=== PATIENT | female | born 1935 | race Caucasian/White ===

== ENCOUNTER 2018-06-26 09:47 | Inpatient (IN) ==
[2018-06-26 09:54] VITALS: BMI 24.7
--- NOTE | 2018-06-26 10:49 | DR.GENAD ---
HPI Time Seen Time Seen by Provider: 06/26/18 10:16 PCP Primary Care Physician: MANDI BERRIOS HPI Comment HPI Comment: PATIENT HAVE HAD CONSTIPATION FOR PAST 10 DAYS AND IS GETTING WORSE. NO FEVER. TODAY, AMS WITH LOW BP. SHE IS BEING JERKING A LOT RECENTLY. SEEING NEUROLOGIST FOR THIS. Complaint/Symptoms Chief Complaint Doctors Comments: AMS AND LOW BLOOD PRESSURE NOTED WHILE PATIENT WAS SITTING UP. JERKING SPELLS FOR A WHILE AND SHE IS CONSTIPATED. Chief Complaint:: PATIENT WOKE UP THIS MORNING BLOOD PRESSURE WAS 80/55 AND 119/ 95. FAMILY STATED THAT SHE HAS BEEN HAVING JERKING SPELLS. SHE HAS BEEN GOING 8- 10 DAYS WITHOUT A BOWEL MOVEMENT. SHE HAS GONE THIS WEEKEND AFTER A BOWEL PREP.J Nurses notes reviewed Nurses Notes Review: Yes Source History Provided: Family Member Mode of Arrival Mode of Arrival: Wheelchair Timing Onset of Chief Complaint: 06/26/18 Came on: Suddenly Duration Duration: Constant Duration: Hours Severity Severity: Moderate Modifying Factors Worsens:: NONE NOTED. Improves:: NONE NOTED. Associated Signs and Symptoms Associated Signs and Symptoms: WEAK PMH PMH Past Medical History: Yes Past Medical History: Alzheimers, Dementia, Diabetes and Hypertension Past Surgical History: Yes Surgical History: Appendectomy, Carotid Endarterectomy, Hysterectomy and Ortho Surgery Family History History of Family Medical Conditions: Yes Family Medical History: Diabetes Mellitus, [place], Heart Failure and Hypertension Social History Does patient currently use any type of tobacco product: No Have you used tobacco products in the last 12 months: No Type of Tobacco Use: None Does any household member use tobacco: No Alcohol Use: None and Rarely Do you use any recreational Drugs:: No Lives With: Family Lives Where: Home infectious screening In the last 2 months have you had wt loss of >10#?: NO Have you had fever, night sweats or hemotysis?: No Have you traveled outside the country in the last 6 months?: No Isolation: Standard ROS Review of Systems Constitutional: Weakness and Fatigue; negative Chills and Fever Eyes: negative Eye Pain and Discharge ENTM: No Symptoms Reported Respiratoy: Short of Breath (ON EXERSION.) Cardiovascular: No Symptoms Reported Gastrointestinal/Abdominal: Abdominal Pain and Constipation Genitourinary: No Symptoms Reported Neurological: Tremors (JERKING SPELLS.) and Weakness Musculoskeletal: Joint Pain Integumentary: Dryness Hematologic/Lymphatic: Easy Bleeding and Easy Bruising Endocrine: negative [place] Psychiatric: No Symptoms Reported Unable to Obtain Due To: Altered mental status PE Vital Signs Vitals: Temperature 98.2 F Pulse Rate [Apical] 66 Pulse Rate 66 Respiratory Rate 18 Blood Pressure [Right Arm] 139/99 Blood Pressure [Left Arm] 137/80 Blood Pressure [Right Radial 182/84 Artery] Blood Pressure 128/58 O2 Sat by Pulse Oximetry 94 General Limitations: Altered Mental Status General Appearance: Alert and In No Apparent Distress Head Head Exam: Normal Inspection and Atraumatic Eyes Eye exam: PERRL; negative Scleral Icterus and Conjunctival Injection ENT ENT Exam: Normal Oropharynx, Normal External Ear Exam, Mucous Membranes Dry and TM's Normal Bilaterally External Ear Exam: Normal External Inspection TM/Canal Exam: Bilateral: Normal Nose Exam: Normal Nose Exam Mouth Exam: negative Trismus and Lip Swelling Throat Exam: negative Tonsillar Erythema, Tonsillomegaly and Tonsillar Exudate Neck Neck Exam: Full ROM and Trachea Midline; negative Tenderness and Meningismus Chest Chest Inspection: Normal Inspection and Symmetric Chest Wall Rise Respiratory Respiratory Exam: Normal Lung Sounds Bilat Respiratory Exam: Bilateral: Rhonchi and Lower: Rhonchi Cardiovascular Cardiovascular Exam: Regular Rate and Normal Rhythm Abdominal Exam Abdominal Exam: Normal Bowel Sounds and Soft; negative Tenderness Extremities Extremities Exam: negative Edema Back Back Exam: Normal Inspection Neurologic Neurological Exam: Alert and Other (ORIENTED TO PERSON.); negative Motor Sensory Deficit Psychiatric Psychiatric Exam: negative Agitated Skin Skin Exam: Dry MDM Additional Information Additional Information Obtained From: Family Differential Diagnosis Differential Diagnosis: AMS, HYPOTENSION, UTI, SEPSIS, [place], CVA, JERKING MOVEMENT. COURSE Treatment Treatment: SEE ORDERS. BP IN SUPINE POSITION RUNNING IN LOW NORMAL. Education/Counseling Education/Counseling: Family and Education Educated On: Diagnosis ROR Labs Reviewed Laboratory Results Reviewed?: Yes Result Diagrams: 06/27/18 05:14 06/27/18 05:14 Laboratory: WBC 6.6 X10^3/uL (3.6-10.0) 06/27/18 05:14 RBC 3.95 X10^6/uL (3.5-5.4) 06/27/18 05:14 Hgb 12.0 g/dL (12.0-16.0) 06/27/18 05:14 Hct 36.1 % (36.0-47.0) 06/27/18 05:14 MCV 91.2 fL (80.0-100.0) 06/27/18 05:14 MCH 30.4 pg (27.0-34.0) 06/27/18 05:14 MCHC 33.4 g/dL (33.0-35.0) 06/27/18 05:14 RDW 15.3 % (11.6-16.5) 06/27/18 05:14 Plt Count 280 X10^3/uL (150.0-450.0) 06/27/18 05:14 MPV 8.6 fL (7.4-11.0) 06/27/18 05:14 Neut % (Auto) 41.5 % (42.0-75.0) L 06/27/18 05:14 Lymph % (Auto) 47.9 % (21.0-51.0) 06/27/18 05:14 [place] % (Auto) 7.4 % (0.0-13.0) 06/27/18 05:14 Eos % (Auto) 2.5 % (0.9-2.9) 06/27/18 05:14 Baso % (Auto) 0.7 % (0.2-1.0) 06/27/18 05:14 Neut # (Auto) 2.7 x10^3/uL (2.2-4.8) 06/27/18 05:14 Lymph # (Auto) 3.1 X10^3/uL (1.3-2.9) H 06/27/18 05:14 [place] # (Auto) 0.5 x10^3/uL (0.3-0.8) 06/27/18 05:14 Eos # (Auto) 0.2 x10^3/uL (0.0-0.2) 06/27/18 05:14 Baso # (Auto) 0.0 X10^3/uL (0.0-0.1) 06/27/18 05:14 Absolute Nucleated RBC 0.0 /100WBC 06/27/18 05:14 Sodium 138 mmol/L (136-145) 06/27/18 05:14 Corrected Sodium TNP 06/27/18 05:14 Potassium 5.1 mmol/L (3.5-5.1) 06/27/18 05:14 Chloride 105 mmol/L (98-107) 06/27/18 05:14 Carbon Dioxide 25.4 mmol/L (21-32) 06/27/18 05:14 BUN 30 mg/dL (7-18) H 06/27/18 05:14 Creatinine 1.58 mg/dL (0.55-1.02) H 06/27/18 05:14 Est GFR (MDRD) Af Amer 40 (>60) L 06/27/18 05:14 Est GFR (MDRD) Non-Af 33 (>60) L 06/27/18 05:14 Glucose 86 mg/dL (65-99) 06/27/18 05:14 POC Glucose (mg/dL) 120 mg/dL (65-99) H 06/27/18 11:50 Calcium 8.1 mg/dL (8.5-10.1) L 06/27/18 05:14 Corrected Calcium 8.7 mg/dL (8.5-10.1) 06/27/18 05:14 Magnesium 2.5 mg/dL (1.7-2.9) 06/27/18 05:14 Total Bilirubin 0.30 mg/dL (0.2-1.0) 06/27/18 05:14 AST 15 Units/L (15-37) 06/27/18 05:14 ALT 19 Units/L (12-78) 06/27/18 05:14 Alkaline Phosphatase 88 Units/L (46-116) 06/27/18 05:14 Creatine Kinase 78 Units/L (26-192) 06/26/18 23:15 CK-MB (CK-2) 1.7 ng/mL (0-4.0) 06/26/18 23:15 CK/CKMB % Calc 2.2 % (<4) 06/26/18 23:15 Troponin I < 0.02 ng/mL (0-1.5) 06/26/18 23:15 Total Protein 7.0 g/dL (6.4-8.2) 06/27/18 05:14 Albumin 3.3 g/dL (3.4-5.0) L 06/27/18 05:14 Globulin 3.7 g/dL (2.5-4.5) 06/27/18 05:14 Albumin/Globulin Ratio 0.9 Ratio (1.1-2.1) L 06/27/18 05:14 Specimen Type Catherized urine 06/27/18 18:01 Urine Color Yellow (YELLOW) 06/27/18 18: Urine Appearance Clear (CLEAR) 06/27/18 18:01 Urine pH 7.0 (5.0 - 8.0) 06/27/18 18:01 Ur Specific [place] 1.010 (1.000-1.030) 06/27/18 18:01 Urine Protein 1+ (NEGATIVE) 06/27/18 18: Urine Glucose (UA) Negative (NEGATIVE) 06/27/18 18: Urine Ketones Negative (NEGATIVE) 06/27/18 18: Urine Occult Blood 1+ (NEGATIVE) 06/27/18 18: Urine Nitrite Negative (NEGATIVE) 06/27/18 18: Urine Bilirubin Negative (NEGATIVE) 06/27/18 18:01 Urine Urobilinogen Normal (NORMAL) 06/27/18 18:01 Ur Leukocyte Esterase 3+ (NEGATIVE) 06/27/18 18:01 XRAY XRAY Interpreted by: Radiologist XRAY Findings: REPORT DISCUSS WITH FAMILY MEMBERS. EKG [place]: Normal Rhythm: NSR Diagnosis Discharge Problem: Acute hyperkalemia, Altered mental state
[2018-06-26 11:06] LABS: BASOPHILS # (AUTO) 0.1 X10^3/uL (0.0-0.1); BASOPHILS % (AUTO) 1.1 % (0.2-1.0); EOSINOPHILS # (AUTO) 0.1 x10^3/uL (0.0-0.2); HEMATOCRIT 36.8 % (36.0-47.0); HEMOGLOBIN 12.2 g/dL (12.0-16.0); LYMPHOCYTES # (AUTO) 2.5 X10^3/uL (1.3-2.9); LYMPHOCYTES % (AUTO) 39.5 % (21.0-51.0); MEAN CORPUSCULAR HEMOGLOBIN 30.3 pg (27.0-34.0); MEAN CORPUSCULAR HGB CONC 33.1 g/dL (33.0-35.0); MEAN CORPUSCULAR VOLUME 91.8 fL (80.0-100.0); MEAN PLATELET VOLUME 8.3 fL (7.4-11.0); MONOCYTES # (AUTO) 0.4 x10^3/uL (0.3-0.8); MONOCYTES % (AUTO) 6.4 % (0.0-13.0); NEUTROPHILS # (AUTO) 3.3 x10^3/uL (2.2-4.8); PLATELET COUNT 278 X10^3/uL (150.0-450.0); RED BLOOD COUNT 4.01 X10^6/uL (3.5-5.4); RED CELL DISTRIBUTION WIDTH 15.6 % (11.6-16.5); WHITE BLOOD COUNT 6.4 X10^3/uL (3.6-10.0)
--- NOTE | 2018-06-26 11:27 | CT ---
HEAD CT WITHOUT IV CONTRAST CLINICAL INDICATION: Jerking spells TECHNIQUE: Axial CT images from skull base to vertex without IV contrast.Dose reduction techniques in cluding Automated Exposure Control (AEC) and adjustment of mA and kV were utlized. COMPARISON: 12/13/2016 FINDINGS: severe diffuse patchy and confluent white matter hypoattenuation with associated volume loss. There is no evidence of acute infarction, intracranial hemorrhage, mass or mass effect, or abnormal extra-a xial collection. The density of the larger dural venous sinuses is normal. Age-related, ex-vacuo dila tation of the ventricles and sulci. The skull base and calvarium are normal. The included paranasal s inuses and mastoid air cells are predominantly clear. IMPRESSION: 1. No acute intracranial abnormality. Severe chronic microangiopathic changes and ex vacuo dilatation of the ventricles and sulci. Reported By:
[2018-06-26 11:28] LABS: ALANINE AMINOTRANSFERASE 20 Units/L (12-78); ALBUMIN 3.5 g/dL (3.4-5.0); ALKALINE PHOSPHATASE 91 Units/L (46-116); ASPARTATE AMINO TRANSFERASE 18 Units/L (15-37); BLOOD UREA NITROGEN 39 mg/dL (7-18); CALCIUM 8.6 mg/dL (8.5-10.1); CARBON DIOXIDE 28.4 mmol/L (21-32); CHLORIDE 101 mmol/L (98-107); CKMB % 2.9 % (<4); COR NA(FOR HYPERGLY) 135 mmol/L (136-145); CREATINE KINASE 73 Units/L (26-192); CREATINE KINASE MB 2.1 ng/mL (0-4.0); CREATININE 2.06 mg/dL (0.55-1.02); SODIUM 134 mmol/L (136-145); TOTAL PROTEIN 7.3 g/dL (6.4-8.2); TROPONIN I < 0.02 ng/mL (0-1.5); eGFR NON BLACK RACES 25 (>60)
--- NOTE | 2018-06-26 12:04 | RAD ---
History: Hypertension and jerking spells Study : AP supine chest Comparison: None Findings: The heart size is normal. There is moderate elevation of the right hemidiaphragm. There is increased density at the elevated right lung base. There are increased diffuse interstitial lung nathaniel ings. There is no obvious effusion. No significant bony abnormality is demonstrated. Impression: Elevated right hemidiaphragm with subsegmental atelectasis at the right lung base Reported By:
[2018-06-26] MEDS ORDERED: D50W ABBOJECT SYR IV ONE (12:29)
[2018-06-26] MEDS ORDERED: HumuLIN R IV ONE (12:33)
[2018-06-26] MEDS ORDERED: KAYEXALATE SUSP PO ONE (12:34)
[2018-06-26] MEDS ORDERED: VALIUM PO ONE (12:35)
[2018-06-26] MEDS ORDERED: VALIUM ONE (12:44)
[2018-06-26] MEDS ORDERED: HumuLIN R ONE (12:45)
[2018-06-26] MEDS ORDERED: D50W ABBOJECT SYR ONE (12:47)
[2018-06-26] MEDS: NS 1000 ML 1,000 ML IV SCH ×2 (12:56→21:14)
--- NOTE | 2018-06-26 13:47 | RAD ---
History: No bowel movement for 8-10 days Study: KUB Findings: There is prominent fecal material throughout the entire colon. There is no small bowel dist ention. There are degenerative changes in the spine. No abnormal soft tissue calcification is demonst rated. Impression: Probable constipation Reported By:
[2018-06-26 17:10] LABS: CKMB % 2.5 % (<4); CREATINE KINASE 76 Units/L (26-192); CREATINE KINASE MB 1.9 ng/mL (0-4.0); TROPONIN I < 0.02 ng/mL (0-1.5)
[2018-06-26] MEDS ORDERED: VALIUM PO PRN (20:20)
[2018-06-26] MEDS: SNACK - Diabetic Appropriate PO SCH (21:13)
[2018-06-26] MEDS ORDERED: HumuLIN R SUBCUT PRN (21:23)
[2018-06-26 23:46] LABS: CKMB % 2.2 % (<4); CREATINE KINASE 78 Units/L (26-192); CREATINE KINASE MB 1.7 ng/mL (0-4.0); TROPONIN I < 0.02 ng/mL (0-1.5)
[2018-06-27] MEDS: NS 1000 ML 1,000 ML IV SCH ×3 (05:07→21:30)
[2018-06-27 06:15] LABS: BASOPHILS % (AUTO) 0.7 % (0.2-1.0); EOSINOPHILS # (AUTO) 0.2 x10^3/uL (0.0-0.2); EOSINOPHILS % (AUTO) 2.5 % (0.9-2.9); HEMATOCRIT 36.1 % (36.0-47.0); LYMPHOCYTES # (AUTO) 3.1 X10^3/uL (1.3-2.9); LYMPHOCYTES % (AUTO) 47.9 % (21.0-51.0); MEAN CORPUSCULAR HEMOGLOBIN 30.4 pg (27.0-34.0); MEAN CORPUSCULAR HGB CONC 33.4 g/dL (33.0-35.0); MEAN CORPUSCULAR VOLUME 91.2 fL (80.0-100.0); MEAN PLATELET VOLUME 8.6 fL (7.4-11.0); MONOCYTES # (AUTO) 0.5 x10^3/uL (0.3-0.8); MONOCYTES % (AUTO) 7.4 % (0.0-13.0); NEUTROPHILS # (AUTO) 2.7 x10^3/uL (2.2-4.8); NEUTROPHILS % (AUTO) 41.5 % (42.0-75.0); PLATELET COUNT 280 X10^3/uL (150.0-450.0); RED BLOOD COUNT 3.95 X10^6/uL (3.5-5.4); RED CELL DISTRIBUTION WIDTH 15.3 % (11.6-16.5); WHITE BLOOD COUNT 6.6 X10^3/uL (3.6-10.0)
[2018-06-27 06:21] LABS: ALANINE AMINOTRANSFERASE 19 Units/L (12-78); ALBUMIN 3.3 g/dL (3.4-5.0); ALKALINE PHOSPHATASE 88 Units/L (46-116); ASPARTATE AMINO TRANSFERASE 15 Units/L (15-37); BLOOD UREA NITROGEN 30 mg/dL (7-18); CALCIUM 8.1 mg/dL (8.5-10.1); CARBON DIOXIDE 25.4 mmol/L (21-32); CHLORIDE 105 mmol/L (98-107); COR CA(FOR HYPOALB) 8.7 mg/dL (8.5-10.1); CREATININE 1.58 mg/dL (0.55-1.02); MAGNESIUM 2.5 mg/dL (1.7-2.9); SODIUM 138 mmol/L (136-145); eGFR NON BLACK RACES 33 (>60)
[2018-06-27] MEDS ORDERED: PATIENT'S HOME MEDICATION (Lisinopril 10 MG) PO SCH (13:30)
--- NOTE | 2018-06-27 14:19 | DR.H&P ---
H&P - History & Physical for Day of: H&P Date: 06/26/18 - Chief Complaint Chief Complaint: WEAKNESS, DROWSINESS, HYPOTENSION, "JERKING SPELLS" - History of Present Illness History of Present Illness: IS A 82 YEAR OLD PATIENT OF OURS WHO PRESENTED TO THE EMERGENCY ROOM WITH FAMILY REPORTING DECREASED BLOOD PRESSURE, DROWSINESS, AND JERKING SPELLS IN THE MORNINGS. THEY REPORT THAT PATIENT HAS BEEN COMPLAINING OF ABDOMINAL PAIN AND WEAKNESS. ON ARRIVAL, VITALS WERE 97.3-66-20-98%-128/58. LABS WERE OBTAINED. ABNORMAL LAB VALUES INLCUDE THE FOLLOWING: SODIUM 134, POTASSIUM 6.4, BUN 39, CREATININE 2.06, GLUCOSE 135. CARDIAC ENZYMES AND EKGS ARE WITHIN NORMAL LIMITS. A BRAIN CT WAS OBTAINED AND REVEALED: severe diffuse patchy and confluent white matter hypoattenuation with associated volume loss. There is no evidence of acute infarction, intracranial hemorrhage, mass or mass effect, or abnormal extra-axial collection. The density of the larger dural venous sinuses is normal. Age-related, ex-vacuo dilatation of the ventricles and sulci. The skull base and calvarium are normal. The included paranasal sinuses and mastoid air cells are predominantly clear. A CHEST XRAY WAS OBTAINED AND REVEALED: Elevated right hemidiaphragm with subsegmental atelectasis at the right lung base. KUB REVEALED: POSSIBLE CONSTIPATION. SHE WAS GIVEN KAYEXALATE 15GM PO X 1, VALIUM 5MG PO X 1, HUMULIN R 5UNITS IV, AND AN AMP OF D50 IN THE ER. SHE WAS ADMITTED FOR FURTHER EVALUATION AND TREATMENT OF HYPERKALEMIA, RENAL INSUFFICIENCY, AND DEHYDRATION. SHE WAS STARTED ON NORMAL SALINE AT 125ML/HR. WE PLAN TO FOLLOW UP WITH AM LABS AND CONTINUE TO MONITOR PATIENT. - Past Medical History Past Medical History: Hypertension, Diabetes, Alzheimers, Dementia - Past Surgical History Surgical History: Appendectomy, Carotid Endarterectomy, Hysterectomy, Ortho Surgery - Family History Family Medical History: Diabetes Mellitus, [place], Heart Failure, Hypertension - Social History Does patient currently use any type of tobacco product: No Have you used tobacco products in the last 12 months: No Type of Tobacco Use: None Does any household member use tobacco: No Alcohol Use: None, Rarely Drug Use: None - Medications Home Medications: sitagliptin [From [employer]] Allergy (Verified 06/26/18 10:50) CONTINUE taking the following medications loratadine 1 tab PO HS 06/26/18 [History] - Physical Exam Vital Signs: Temperature 98.2 F Pulse Rate [Apical] 66 Pulse Rate 66 Respiratory Rate 15 Blood Pressure [Right Arm] 158/67 Blood Pressure [Left Arm] 137/80 Blood Pressure [Right Radial 182/84 Artery] Blood Pressure 128/58 O2 Sat by Pulse Oximetry 98 - Allergies Allergies/Adverse Reactions: Allergies Allergy/AdvReac Type Severity Reaction Status Date / Time sitagliptin [From ] Allergy Verified 06/26/18 10:50
[2018-06-27] MEDS ORDERED: ZESTRIL TAB 10 MG ONE (14:20)
[2018-06-27] MEDS: NAMENDA TAB 10 MG PO SCH ×2 (14:25→21:30)
[2018-06-27] MEDS: ZESTRIL TAB 10 MG PO SCH (14:25)
[2018-06-27] MEDS: EXELON TD SCH (14:31)
[2018-06-27 18:29] LABS: BILIRUBIN,URINE NEGATIVE (NEGATIVE); BLOOD/HEMOGLOBIN,URINE 1+ (NEGATIVE); GLUCOSE, URINE NEGATIVE (NEGATIVE); KETONES,URINE NEGATIVE (NEGATIVE); LEUKOCYTE ESTERASE ,URINE 3+ (NEGATIVE); NITRITES,URINE NEGATIVE (NEGATIVE); PROTEIN,URINE 1+ (NEGATIVE); UROBILINOGEN,URINE NORMAL (NORMAL)
[2018-06-27 18:33] LABS: APPEARANCE,URINE CLEAR (CLEAR); COLOR,URINE YELLOW (YELLOW)
[2018-06-27] MEDS: SNACK - Diabetic Appropriate PO SCH (19:59)
[2018-06-27] MEDS ORDERED: SNACK - Diabetic Appropriate PO SCH (20:00)
[2018-06-27] MEDS ORDERED: ZOCOR TAB 20 MG PO SCH (21:00)
[2018-06-27] MEDS ORDERED: FLOMAX PO SCH (21:00)
[2018-06-27] MEDS ORDERED: CLARITIN PO SCH (21:00)
[2018-06-27] MEDS ORDERED: MIRALAX POWDER (1 DOSE 17 G) PO SCH (21:00)
[2018-06-27] MEDS ORDERED: ASPIRIN PO SCH (21:00)
[2018-06-27] MEDS ORDERED: PATIENT'S HOME MEDICATION (Simvastatin 1 TAB) PO SCH (21:00)
[2018-06-27] MEDS ORDERED: TAMSULOSIN HCL PO SCH (21:00)
[2018-06-28 05:12] LABS: BASOPHILS % (AUTO) 0.8 % (0.2-1.0); EOSINOPHILS # (AUTO) 0.2 x10^3/uL (0.0-0.2); EOSINOPHILS % (AUTO) 3.5 % (0.9-2.9); HEMATOCRIT 34.5 % (36.0-47.0); HEMOGLOBIN 11.6 g/dL (12.0-16.0); LYMPHOCYTES % (AUTO) 48.5 % (21.0-51.0); MEAN CORPUSCULAR HEMOGLOBIN 30.6 pg (27.0-34.0); MEAN CORPUSCULAR HGB CONC 33.5 g/dL (33.0-35.0); MEAN CORPUSCULAR VOLUME 91.3 fL (80.0-100.0); MEAN PLATELET VOLUME 8.6 fL (7.4-11.0); MONOCYTES # (AUTO) 0.5 x10^3/uL (0.3-0.8); NEUTROPHILS # (AUTO) 2.4 x10^3/uL (2.2-4.8); NEUTROPHILS % (AUTO) 39.2 % (42.0-75.0); PLATELET COUNT 251 X10^3/uL (150.0-450.0); RED BLOOD COUNT 3.78 X10^6/uL (3.5-5.4); RED CELL DISTRIBUTION WIDTH 14.7 % (11.6-16.5); WHITE BLOOD COUNT 6.1 X10^3/uL (3.6-10.0)
[2018-06-28] MEDS: NS 1000 ML 1,000 ML IV SCH (05:19)
[2018-06-28 05:29] LABS: ALANINE AMINOTRANSFERASE 18 Units/L (12-78); ALBUMIN 2.9 g/dL (3.4-5.0); ALKALINE PHOSPHATASE 87 Units/L (46-116); ASPARTATE AMINO TRANSFERASE 15 Units/L (15-37); BLOOD UREA NITROGEN 23 mg/dL (7-18); CARBON DIOXIDE 22.6 mmol/L (21-32); CHLORIDE 107 mmol/L (98-107); COR CA(FOR HYPOALB) 8.9 mg/dL (8.5-10.1); COR NA(FOR HYPERGLY) 139 mmol/L (136-145); CREATININE 1.11 mg/dL (0.55-1.02); SODIUM 138 mmol/L (136-145); TOTAL PROTEIN 6.3 g/dL (6.4-8.2); eGFR NON BLACK RACES 50 (>60)
[2018-06-28] MEDS: NAMENDA TAB 10 MG PO SCH (08:33)
[2018-06-28] MEDS: ZESTRIL TAB 10 MG PO SCH (08:33)
[2018-06-28] MEDS: EXELON TD SCH (08:38)
[2018-06-28 14:18] VITALS: BP 150/76
--- NOTE | 2018-08-08 00:05 | DR.CARTERD ---
- Discharge Summary for: Discharge Summary for Date of:: 06/28/18 - Admission Date Date of Admission: 06/26/18 - Admission Diagnoses Admission Diagnosis: 1. Hyperkalemia 2. Renal Insufficiency 3. Dehydration - Discharge Date Discharge Date: 06/28/18 - Discharge Diagnoses Discharge Diagnosis: 1. Hyperkalemia 2. Enterococcus Faecalis UTI 3. Renal Insufficiency 4. Dehydration - Hospital Course Hospital Course: MS. JALLOH IS A 82 YEAR OLD PATIENT OF OURS WHO PRESENTED TO THE EMERGENCY ROOM WITH FAMILY REPORTING DECREASED BLOOD PRESSURE, DROWSINESS, AND JERKING SPELLS IN THE MORNINGS. THEY REPORTED THAT PATIENT HAD BEEN COMPLAINING OF ABDOMINAL PAIN AND WEAKNESS. ON ARRIVAL, VITALS WERE 97.3-66-20-98%-128/58. LABS WERE OBTAINED. ABNORMAL LAB VALUES INCLUDED THE FOLLOWING: SODIUM 134, POTASSIUM 6.4, BUN 39, CREATININE 2.06, GLUCOSE 135. CARDIAC ENZYMES AND EKGS ARE WITHIN NORMAL LIMITS. A BRAIN CT WAS OBTAINED AND REVEALED: severe diffuse patchy and confluent white matter hypoattenuation with associated volume loss. There is no evidence of acute infarction, intracranial hemorrhage, mass or mass effect, or abnormal extra-axial collection. The density of the larger dural venous sinuses is normal. Age-related, ex-vacuo dilatation of the ventricles and sulci. The skull base and calvarium are normal. The included paranasal sinuses and mastoid air cells are predominantly clear. A CHEST XRAY WAS OBTAINED AND REVEALED: Elevated right hemidiaphragm with subsegmental atelectasis at the right lung base. KUB REVEALED: POSSIBLE CONSTIPATION. SHE WAS GIVEN KAYEXALATE 15GM PO X 1, VALIUM 5MG PO X 1, HUMULIN R 5UNITS IV, AND AN AMP OF D50 IN THE ER. SHE WAS ADMITTED FOR FURTHER EVALUATION AND TREATMENT OF HYPERKALEMIA, RENAL INSUFFICIENCY, AND DEHYDRATION. SHE WAS STARTED ON NORMAL SALINE AT 125ML/HR. WE CONTINUED TO MONITOR PATIENT. FINAL URINE CULTURE REPORTED ENTEROCOCCUS FAECALIS UTI. PATIENT PLACED ON APPROPRIATE ANTIBIOTICS ACCORDING TO CULTURE AND SENSITIVITY. ON DAY THREE, PATIENT REPORTED SHE WAS FEELING BETTER. PATIENT NOTED WITH NO JERKING MOVEMENTS. POTASSIUM HAD RETURNED TO NORMAL AT 5.1. RENAL FUNCTION IMPROVED WITH IV HYDRATION. VITAL SIGNS STABLE. WE PLANNED FOR DISCHARGE. INSTRUCTIONS FOR MEDICATIONS AND FOLLOW UP WERE DISCUSSED WITH PATIENT AND FAMILY, BOTH VOICED UNDERSTANDING. PATIENT DISCHARGED HOME IN STABLE CONDITION WITH FAMILY. Labs: Microbiology 06/27/18 18:00 Urine,Catheterized Urine Culture - Final Enterococcus Faecalis - Discharge Medications Discharge Medications: Home Medication List loratadine 1 tab PO HS 06/26/18 [History] docusate sodium [Colace] 100 mg PO QDAY #30 cap 06/28/18 [Rx] magnesium hydroxide [Milk of Magnesia] 10 ml PO QID PRN #1 bottle 06/28/18 [Rx] polyethylene glycol 3350 [Miralax] 17 g PO QDAY #1 bottle 06/28/18 [Rx] Prescriptions: docusate sodium [Colace] Willy Cabrera magnesium hydroxide [Milk of Magnesia] Willy Cabrera polyethylene glycol 3350 [Miralax] Willy Cabrera Lisinopril 10 mg PO DAILY 07/17/13 aspirin 325 mg PO HS 07/17/13 insulin glargine [Lantus U-100 Insulin] 18 units SC HS 07/17/13 memantine [Namenda] 10 mg PO BID 07/17/13 Omeprazole 1 tab PO DAILY 12/13/16 Simvastatin 1 tab PO HS 12/13/16 Tamsulosin HCl 1 tab PO HS 12/13/16 rivastigmine 1 patch TD DAILY 12/13/16 Levaquin 500mg po daily x 10 days - Discharge Disposition Discharge Disposition: PATIENT IS TO FOLLOW UP IN OUR OFFICE IN ONE WEEK.
== END 2018-06-28 14:39 | disposition home or self-care (01) | DRG 316 ==
LOC: ER 09:47 → ICU 14:03
PROVIDERS: ADMIT Internal Medicine; ATTEND Internal Medicine
DX: N28.9 Disorder of kidney and ureter, unspecified; I10 Essential (primary) hypertension; R29.6 Repeated falls; R42 Dizziness and giddiness; E11.65 Type 2 diabetes mellitus with hyperglycemia; R53.1 Weakness; R94.31 Abnormal electrocardiogram [ECG] [EKG]; E86.0 Dehydration; K59.09 Other constipation; R41.82 Altered mental status, unspecified; I95.89 Other hypotension
CPT/HCPCS: 36415; 70450; 71010; 71045; 74000; 74018; 80053; 81003; 82550; 82553; 83735; 84132; 84484; 85025; 87086; 87088; 87186; 93005; 93010; 94762; 96365; 96367; 96374; 96375; 97163; 99284; A4216; A4222; J1815; J3490; J7030

== ENCOUNTER 2019-09-27 14:12 | Inpatient (IN) ==
[2019-09-27 14:31] VITALS: BMI 19.1
--- NOTE | 2019-09-27 14:32 | DR.SEIZA ---
HPI - Time Seen Time seen: 14:20 - HPI Comment HPI Comment: Patient brought in by EMS after family called. Patient had what appeared to be a seizure(arched back eyes rolled, jerking all over) She became unresponsive and was unresponsive on EMS arrival till brought to Er. She is min imally responzive now. Patient is bedridden due to advanced dementia. Stat Ct Head ordered and orders put in. PMH - PMH Past Medical History: CHF Past Surgical History: No Surgical History: Appendectomy, Carotid Endarterectomy, Hysterectomy, Ortho Surgery - Family History Family Medical History: Diabetes Mellitus, [place], Coronary Artery Disease, Heart Failure, Hypertension - Social History Do you use any recreational Drugs:: No - infectious screening Isolation: Standard PE - Vital Signs Vitals: Temperature 97.2 F Pulse Rate 85 Respiratory Rate 18 Blood Pressure [Right Arm] 134/72 Blood Pressure 169/87 O2 Sat by Pulse Oximetry 90 Course - Consultation Called: 16:22 (discussed Dr. Cabrera admit) Call Returned: 16:22 ROR - Labs Reviewed Result Diagrams: 09/27/19 14:30 09/27/19 14:30 - XRAY XRAY Interpreted by: Radiologist XRAY Findings: chest: CMG bibasilar atelectasis CT head no acute disease - EKG Rate: 89 (paced rhythm) - Labs Reviewed Laboratory: WBC 9.3 X10^3/uL (3.6-10.0) 09/27/19 14:30 RBC 3.91 X10^6/uL (3.5-5.4) 09/27/19 14:30 Hgb 12.2 g/dL (12.0-16.0) 09/27/19 14:30 Hct 36.5 % (36.0-47.0) 09/27/19 14:30 MCV 93.3 fL (80.0-100.0) 09/27/19 14:30 MCH 31.1 pg (27.0-34.0) 09/27/19 14:30 MCHC 33.3 g/dL (33.0-35.0) 09/27/19 14:30 RDW 14.9 % (11.6-16.5) 09/27/19 14:30 Plt Count 312 X10^3/uL (150.0-450.0) 09/27/19 14:30 MPV 8.5 fL (7.4-11.0) 09/27/19 14:30 Neut % (Auto) 58.5 % (42.0-75.0) 09/27/19 14:30 Lymph % (Auto) 35.8 % (21.0-51.0) 09/27/19 14:30 [place] % (Auto) 3.8 % (0.0-13.0) 09/27/19 14:30 Eos % (Auto) 1.4 % (0.9-2.9) 09/27/19 14:30 Baso % (Auto) 0.5 % (0.2-1.0) 09/27/19 14:30 Neut # (Auto) 5.5 x10^3/uL (2.2-4.8) H 09/27/19 14:30 Lymph # (Auto) 3.3 X10^3/uL (1.3-2.9) H 09/27/19 14:30 [place] # (Auto) 0.4 x10^3/uL (0.3-0.8) 09/27/19 14:30 Eos # (Auto) 0.1 x10^3/uL (0.0-0.2) 09/27/19 14:30 Baso # (Auto) 0.0 X10^3/uL (0.0-0.1) 09/27/19 14:30 Absolute Nucleated RBC 0.0 /100WBC 09/27/19 14:30 PT 13.3 SECONDS (11.8-14.3) 09/27/19 14:30 INR Target Range - 09/27/19 14:30 INR 1.05 (0.8-1.3) 09/27/19 14:30 APTT 26.5 SECONDS (22.9-36.5) 09/27/19 14:30 PTT Comment - 09/27/19 14:30 Sodium 140 mmol/L (136-145) 09/27/19 14:30 Corrected Sodium 142 mmol/L (136-145) 09/27/19 14:30 Potassium 3.0 mmol/L (3.5-5.1) L* 09/27/19 14:30 Chloride 98 mmol/L (98-107) 09/27/19 14:30 Carbon Dioxide 31.6 mmol/L (21-32) 09/27/19 14:30 BUN 12 mg/dL (7-18) 09/27/19 14:30 Creatinine 0.57 mg/dL (0.55-1.02) 09/27/19 14:30 Est GFR (MDRD) Af Amer > 60 (>60) 09/27/19 14:30 Est GFR (MDRD) Non-Af > 60 (>60) 09/27/19 14:30 Glucose 173 mg/dL (65-99) H 09/27/19 14:30 Calcium 8.8 mg/dL (8.5-10.1) 09/27/19 14:30 Corrected Calcium 9.5 mg/dL (8.5-10.1) 09/27/19 14:30 Total Bilirubin 0.40 mg/dL (0.2-1.0) 09/27/19 14:30 AST 18 Units/L (15-37) 09/27/19 14:30 ALT 8 Units/L (12-78) L 09/27/19 14:30 Alkaline Phosphatase 83 Units/L (46-116) 09/27/19 14:30 Creatine Kinase 18 Units/L (26-192) L 09/27/19 14:30 CK-MB (CK-2) < 1.0 ng/mL (0-4.0) 09/27/19 14:30 CK/CKMB % Calc 5.6 % (<4) 09/27/19 14:30 Troponin I 0.03 ng/mL (0-1.5) 09/27/19 14:30 Total Protein 6.8 g/dL (6.4-8.2) 09/27/19 14:30 Albumin 3.1 g/dL (3.4-5.0) L 09/27/19 14:30 Globulin 3.7 g/dL (2.5-4.5) 09/27/19 14:30 Albumin/Globulin Ratio 0.8 Ratio (1.1-2.1) L 09/27/19 14:30 Specimen Type Catherized urine 09/27/19 14:55 Urine Color Yellow (YELLOW) 09/27/19 14:55 Urine Appearance Cloudy (CLEAR) 09/27/19 14:55 Urine pH 6.0 (5.0 - 8.0) 09/27/19 14:55 Ur Specific [place] 1.020 (1.000-1.030) 09/27/19 14:55 Urine Protein 3+ (NEGATIVE) 09/27/19 14:55 Urine Glucose (UA) Negative (NEGATIVE) 09/27/19 14:55 Urine Ketones 2+ (NEGATIVE) 09/27/19 14:55 Urine Occult Blood 1+ (NEGATIVE) 09/27/19 14:55 Urine Nitrite Positive (NEGATIVE) 09/27/19 14:55 Urine Bilirubin Negative (NEGATIVE) 09/27/19 14:55 Urine Urobilinogen Normal (NORMAL) 09/27/19 14:55 Ur Leukocyte Esterase Negative (NEGATIVE) 09/27/19 14:55 Urine RBC 0-2 /HPF (0-3) 09/27/19 14:55 Urine WBC 3-5 /HPF (0-5) 09/27/19 14:55 Ur Squamous Epith Cells Few /HPF (NEGATIVE) 09/27/19 14:55 Urine Bacteria 4+ /HPF (NEGATIVE) 09/27/19 14:55 Ur Culture Indicated? Yes/culture set up 09/27/19 14:55 Opioid - Opioid Risk Tool Age (Eduardo box if 16-45): No History of Preadolescent Sexual Abuse: No Total: 0 Total Score Risk Category: Low Risk - Diagnosis Discharge Problem: New onset seizure - Discharge Plan Disposition: 09 ADMITTED INPATIENT Condition: Stable
[2019-09-27 14:43] LABS: BASOPHILS % (AUTO) 0.5 % (0.2-1.0); EOSINOPHILS # (AUTO) 0.1 x10^3/uL (0.0-0.2); EOSINOPHILS % (AUTO) 1.4 % (0.9-2.9); HEMATOCRIT 36.5 % (36.0-47.0); HEMOGLOBIN 12.2 g/dL (12.0-16.0); LYMPHOCYTES # (AUTO) 3.3 X10^3/uL (1.3-2.9); LYMPHOCYTES % (AUTO) 35.8 % (21.0-51.0); MEAN CORPUSCULAR HEMOGLOBIN 31.1 pg (27.0-34.0); MEAN CORPUSCULAR HGB CONC 33.3 g/dL (33.0-35.0); MEAN CORPUSCULAR VOLUME 93.3 fL (80.0-100.0); MEAN PLATELET VOLUME 8.5 fL (7.4-11.0); MONOCYTES # (AUTO) 0.4 x10^3/uL (0.3-0.8); MONOCYTES % (AUTO) 3.8 % (0.0-13.0); NEUTROPHILS # (AUTO) 5.5 x10^3/uL (2.2-4.8); NEUTROPHILS % (AUTO) 58.5 % (42.0-75.0); PLATELET COUNT 312 X10^3/uL (150.0-450.0); RED BLOOD COUNT 3.91 X10^6/uL (3.5-5.4); RED CELL DISTRIBUTION WIDTH 14.9 % (11.6-16.5); WHITE BLOOD COUNT 9.3 X10^3/uL (3.6-10.0)
--- NOTE | 2019-09-27 14:55 | CT ---
BRAIN W/O CONCLINICAL INDICATION: SEIZURE WITH LOCTECHNIQUE: Images were obtained through the head per standard CT protocol. Multiplanar reformatted images were generated from the CT dataset. Dose reduction techniques including Automated Exposure Control (AEC) and adjustment of mA and kV were utlized.COMPARISON:11/24/2018FINDINGS:Diffuse patchy and confluent periventricular and subcortical hypoattenuation with associated volume loss . There is no evidence of acute infarction, intracranial hemorrhage, mass or mass effect, or abnormal extra-axial collection . The density of the larger dural venous sinuses is normal . Age-related, ex-vacuo dilatation of the ventricles and sulci . The skull base and calvarium are normal .The included paranasal sinuses and mastoid air cells are predominantly clear .IMPRESSION:1. No acute intracranial abnormality. Chronic microangiopathic changes and ex vacuo dilatation of the ventricles and sulci.Electronically signed by: MARIA DEL CARMEN BELRTE (Sep 27, 2019 14:53:22)
[2019-09-27 15:03] LABS: ALANINE AMINOTRANSFERASE 8 Units/L (12-78); ALBUMIN 3.1 g/dL (3.4-5.0); ALKALINE PHOSPHATASE 83 Units/L (46-116); ASPARTATE AMINO TRANSFERASE 18 Units/L (15-37); BLOOD UREA NITROGEN 12 mg/dL (7-18); CALCIUM 8.8 mg/dL (8.5-10.1); CARBON DIOXIDE 31.6 mmol/L (21-32); CHLORIDE 98 mmol/L (98-107); CKMB % 5.6 % (<4); COR CA(FOR HYPOALB) 9.5 mg/dL (8.5-10.1); COR NA(FOR HYPERGLY) 142 mmol/L (136-145); CREATINE KINASE 18 Units/L (26-192); CREATINE KINASE MB < 1.0 ng/mL (0-4.0); CREATININE 0.57 mg/dL (0.55-1.02); SODIUM 140 mmol/L (136-145); TOTAL PROTEIN 6.8 g/dL (6.4-8.2); TROPONIN I 0.03 ng/mL (0-1.5); eGFR NON BLACK RACES > 60 (>60)
[2019-09-27 15:18] LABS: BILIRUBIN,URINE NEGATIVE (NEGATIVE); BLOOD/HEMOGLOBIN,URINE 1+ (NEGATIVE); GLUCOSE, URINE NEGATIVE (NEGATIVE); KETONES,URINE 2+ (NEGATIVE); LEUKOCYTE ESTERASE ,URINE NEGATIVE (NEGATIVE); NITRITES,URINE POSITIVE (NEGATIVE); PROTEIN,URINE 3+ (NEGATIVE); UROBILINOGEN,URINE NORMAL (NORMAL)
[2019-09-27] MEDS ORDERED: NS 1000 ML 1,000 ML ONE (15:20)
[2019-09-27] MEDS: NS 1000 ML 1,000 ML IV SCH (15:25)
[2019-09-27 15:32] LABS: APPEARANCE,URINE CLOUDY (CLEAR); COLOR,URINE YELLOW (YELLOW)
[2019-09-27 15:33] LABS: BACTERIA,URINE 4+ /HPF (NEGATIVE); RBC,URINE 0-2 /HPF (0-3); SQUAMOUS EPITHELIAL CELL,UR FEW /HPF (NEGATIVE)
[2019-09-27] MEDS ORDERED: K-RIDER 10 MEQ/NS 100 ML 10 MEQ/100 ML BAG IV ONE (15:50)
--- NOTE | 2019-09-27 16:08 | RAD ---
HISTORYLOCSTUDYCHEST, 1 [id number]/04/2019FINDINGSThe left ventricle is mildly enlarged. The pulmonary vessels are less prominent centrally the lungs are hypoinflated there are mild linear densities along the lung bases which is less prominent. No effusion or consolidation is seen. There is a left pacemaker in place which is unchanged.IMPRESSIONStable mild cardiomegaly with resolving central pulmonary congestionHypoinflation with slowly resolving bibasilar atelectasis or infiltrates vs residual scarring.Electronically signed by: AMALIA FELIZ (Sep 27, 2019 16:06:56)
[2019-09-27] MEDS ORDERED: DILANTIN INJ 100 MG VIAL IVP ONE (16:26)
[2019-09-27] MEDS ORDERED: LEVAQUIN PREMIX IV 500 MG 500 MG/100 ML BAG IV ONE (16:40)
[2019-09-27] MEDS ORDERED: NS 100 ML IV 100 ML IV ONE (16:53)
[2019-09-27] MEDS ORDERED: CEREBYX INJ ONE (16:54)
[2019-09-27] MEDS ORDERED: CEREBYX IV SCH (17:00)
[2019-09-27] MEDS ORDERED: NS IV SCH (17:00)
[2019-09-28 06:24] LABS: BASOPHILS % (AUTO) 0.3 % (0.2-1.0); HEMATOCRIT 34.6 % (36.0-47.0); HEMOGLOBIN 11.6 g/dL (12.0-16.0); LYMPHOCYTES # (AUTO) 1.7 X10^3/uL (1.3-2.9); LYMPHOCYTES % (AUTO) 18.6 % (21.0-51.0); MEAN CORPUSCULAR HEMOGLOBIN 31.1 pg (27.0-34.0); MEAN CORPUSCULAR HGB CONC 33.4 g/dL (33.0-35.0); MEAN CORPUSCULAR VOLUME 93.2 fL (80.0-100.0); MEAN PLATELET VOLUME 9.3 fL (7.4-11.0); MONOCYTES # (AUTO) 0.4 x10^3/uL (0.3-0.8); MONOCYTES % (AUTO) 4.8 % (0.0-13.0); NEUTROPHILS # (AUTO) 7.1 x10^3/uL (2.2-4.8); NEUTROPHILS % (AUTO) 76.3 % (42.0-75.0); PLATELET COUNT 291 X10^3/uL (150.0-450.0); RED BLOOD COUNT 3.72 X10^6/uL (3.5-5.4); RED CELL DISTRIBUTION WIDTH 14.8 % (11.6-16.5); WHITE BLOOD COUNT 9.3 X10^3/uL (3.6-10.0)
[2019-09-28] MEDS ORDERED: KLOR-CON PO PRN (06:31)
[2019-09-28] MEDS ORDERED: K-RIDER 10 MEQ/NS 100 ML 10 MEQ/100 ML BAG IV PRN (06:31)
[2019-09-28] MEDS ORDERED: K-DUR TAB 20 MEQ PO PRN (06:31)
[2019-09-28] MEDS ORDERED: POTASSIUM CHL 40 MEQ/NS 0.45% 500 ML IV PRN (06:31)
[2019-09-28] MEDS ORDERED: MICRO K EXTEN CAP 10 MEQ PO PRN (06:31)
[2019-09-28] MEDS ORDERED: POTASSIUM CHLORIDE LIQ 20 MEQ UDC PO PRN (06:31)
[2019-09-28] MEDS ORDERED: POTASSIUM CHL 60 MEQ/NS 0.45% 500 ML IV PRN (06:31)
[2019-09-28 06:48] LABS: ALANINE AMINOTRANSFERASE 9 Units/L (12-78); ALBUMIN 2.8 g/dL (3.4-5.0); ALKALINE PHOSPHATASE 76 Units/L (46-116); ASPARTATE AMINO TRANSFERASE 15 Units/L (15-37); BLOOD UREA NITROGEN 11 mg/dL (7-18); CALCIUM 8.1 mg/dL (8.5-10.1); CARBON DIOXIDE 28.4 mmol/L (21-32); CHLORIDE 100 mmol/L (98-107); COR CA(FOR HYPOALB) 9.1 mg/dL (8.5-10.1); COR NA(FOR HYPERGLY) 141 mmol/L (136-145); CREATININE 0.47 mg/dL (0.55-1.02); SODIUM 139 mmol/L (136-145); TOTAL PROTEIN 6.1 g/dL (6.4-8.2); eGFR NON BLACK RACES > 60 (>60)
--- NOTE | 2019-09-28 08:36 | DR.H&P ---
H&P - History & Physical for Day of: H&P Date: 09/27/19 - Chief Complaint Chief Complaint: SEIZURE ACTIVITY - History of Present Illness History of Present Illness: IS A 84 YEAR OLD PATIENT OF OURS. SHE PRESENTED TO THE ER WITH FAMILY REPORTING SEIZURE ACTIVITY. THEY REPORT THAT SHE HAS SHAKING AND EYES ROLLED BACK AND THEN PATIENT BECAME UNRESPONSIVE. SHE WAS UNRESPONSIVE ON EMS ARRIVAL. SHE DOES NOT HAVE A KNOWN HISTORY OF SEIZURES. ON ARRIVAL TO THE ER, PATIENT IS MINIMALLY RESPONSIVE. SHE IS BEDRIDDEN DUE TO ADVANCED DEMENTIA. ON ARRIVAL, VITALS WERE: 97.8-93-75-90-169/87. LABS WERE OBTAINED. ABNORMAL LAB VALUES INCLUDE THE FOLLOWING: POTASSIUM 3.0, GLUCOSE 173, ALT 8, CREATINE KINASE 18, ALBUMIN 3.1. A URINALYSIS WAS OBTAINED AND REVEALED: WBC 3-5, RBC 0-2, BACTERIA 4+, LEUKOCYTES NEGATIVE. A URINE CULTURE WAS SET UP. A BRAIN CT WAS OBTAINED AND REVEALED: No acute intracranial abnormality. Chronic microangiopathic changes and ex vacuo dilatation of the ventricles and sulci. EKG REVEALED: VENTRICULAR PACED RHYTHM WITH HR 89. CHEST XRAY WAS OBTAINED AND REVEALED: Stable mild cardiomegaly with resolving central pulmonary congestion. Hypoinflation with slowly resolving bibasilar atelectasis or infiltrates vs res idual scarring. SHE WAS GIVEN LEVAQUIN 500MG IV IN THE ER, FOSPHENYTOIN, AND POTASSIUM REPLACEMENT. SHE WAS ADMITTED FOR FURTHER EVALUATION AND TREATMENT OF NEW ONSET SEIZURE AND UTI. SHE WAS STARTED ON IV FLUIDS, POTASSIUM AND MAGNESIUM PROTOCOLS, AND LEVAQUIN 500MG IV DAILY. OTHERWISE, WE PLAN TO FOLLOW UP WITH AM LABS AND CONTINUE TO MONITOR. - Past Medical History Past Medical History: CHF - Past Surgical History Surgical History: Appendectomy, Carotid Endarterectomy, Hysterectomy - Family History Family Medical History: Diabetes Mellitus, NE, Sudden Cardiac , Hypertension - Social History Have you used tobacco products in the last 12 months: No Type of Tobacco Use: None Does any household member use tobacco: No Alcohol Use: None Drug Use: None - Medications Home Medications: sitagliptin [From Januvia] Allergy (Verified 08/27/19 12:48) - Review of Systems Constitutional: See HPI, Weakness, Other (LETHARGIC ) Eyes: No Symptoms Reported ENT: No Symptoms Reported Respiratory: No Symptoms Reported Cardiovascular: No Symptoms Reported Gastrointestinal: No Symptoms Reported Genitourinary: No Symptoms Reported Musculoskeletal: No Symptoms Reported, Other (BEDRIDDEN ) Skin: No Symptoms Reported Neurological: See HPI, Weakness, Other (LETHARGIC ) - Physical Exam Vital Signs: Temperature 99.1 F Pulse Rate 79 Respiratory Rate 12 Blood Pressure [Right Arm] 134/72 Blood Pressure 125/57 O2 Sat by Pulse Oximetry 100 Oriented: Unable to test Eyes: Normal Ear: Normal Nose: Normal Throat: Normal Respiratory: Diminished Throughout Cardiovascular: Normal : Normal Auscultation: Bowel Sounds: Normal Palpation: Normal Tenderness: Normal Skin: Normal Musculoskeletal: Normal Psychiatric: Normal Mood Description: Calm Affect: Normal Speech Pattern: Clear - Assessment/Plan (1) New onset seizure Status: Acute Plan: ADMIT, IV FLUIDS, CONTINUE TO MONITOR (2) Urinary tract infection Qualifiers: Urinary tract infection type: acute cystitis Hematuria presence: without hematuria Qualified Code(s): N30.00 - Acute cystitis without hematuria Status: Acute Plan: ADMIT, IV FLUIDS, LEVAQUIN 500MG IV DAILY, CONTINUE TO MONITOR - Allergies Allergies/Adverse Reactions: Allergies Allergy/AdvReac Type Severity Reaction Status Date / Time sitagliptin [From ] Allergy Verified 08/27/19 12:48
[2019-09-28] MEDS ORDERED: LEVAQUIN PREMIX IV 500 MG 500 MG/100 ML BAG IV ONE (09:44)
[2019-09-28] MEDS: LEVAQUIN PREMIX IV 500 MG 500 MG/100 ML BAG IV SCH (09:45)
[2019-09-28] MEDS ORDERED: PHARMACY CONSULT - TPN XX SCH (10:00)
[2019-09-28] MEDS: NS 1000 ML 1,000 ML IV SCH ×2 (11:36→16:29)
[2019-09-28] MEDS: MAGNESIUM SULFATE 1 GRAM/100 mL PREMIX 1 GM/100 ML BAG IV PRN ×2 (11:37→12:39)
[2019-09-28] MEDS: PROCALAMINE 3 % 1,000 ML IV SCH (11:37)
[2019-09-29 06:11] LABS: BASOPHILS % (AUTO) 0.5 % (0.2-1.0); EOSINOPHILS # (AUTO) 0.1 x10^3/uL (0.0-0.2); HEMOGLOBIN 10.5 g/dL (12.0-16.0); LYMPHOCYTES # (AUTO) 2.9 X10^3/uL (1.3-2.9); LYMPHOCYTES % (AUTO) 29.7 % (21.0-51.0); MEAN CORPUSCULAR HEMOGLOBIN 31.4 pg (27.0-34.0); MEAN CORPUSCULAR HGB CONC 33.7 g/dL (33.0-35.0); MEAN PLATELET VOLUME 8.8 fL (7.4-11.0); MONOCYTES # (AUTO) 0.7 x10^3/uL (0.3-0.8); MONOCYTES % (AUTO) 7.1 % (0.0-13.0); NEUTROPHILS % (AUTO) 61.7 % (42.0-75.0); PLATELET COUNT 286 X10^3/uL (150.0-450.0); RED BLOOD COUNT 3.33 X10^6/uL (3.5-5.4); RED CELL DISTRIBUTION WIDTH 14.7 % (11.6-16.5); WHITE BLOOD COUNT 9.8 X10^3/uL (3.6-10.0)
[2019-09-29 06:35] LABS: ALANINE AMINOTRANSFERASE 6 Units/L (12-78); ALBUMIN 2.6 g/dL (3.4-5.0); ALKALINE PHOSPHATASE 67 Units/L (46-116); ASPARTATE AMINO TRANSFERASE 14 Units/L (15-37); BLOOD UREA NITROGEN 12 mg/dL (7-18); CALCIUM 8.1 mg/dL (8.5-10.1); CARBON DIOXIDE 33.6 mmol/L (21-32); CHLORIDE 99 mmol/L (98-107); COR CA(FOR HYPOALB) 9.2 mg/dL (8.5-10.1); COR NA(FOR HYPERGLY) 137 mmol/L (136-145); CREATININE 0.45 mg/dL (0.55-1.02); MAGNESIUM 1.9 mg/dL (1.7-2.9); SODIUM 136 mmol/L (136-145); TOTAL PROTEIN 5.9 g/dL (6.4-8.2); eGFR NON BLACK RACES > 60 (>60)
[2019-09-29] MEDS: LEVAQUIN PREMIX IV 500 MG 500 MG/100 ML BAG IV SCH (08:50)
[2019-09-29] MEDS: NS + KCL 20 MEQ/L 1,000 ML IV SCH (09:46)
[2019-09-29] MEDS: MAGNESIUM SULFATE 1 GRAM/100 mL PREMIX 1 GM/100 ML BAG IV PRN ×2 (09:50→11:31)
--- NOTE | 2019-09-29 10:11 | RAD ---
HISTORYShortness of breathSTUDYCHEST, 1 [id number]/2019FINDINGSThe cardiac silhouette remains enlarged, without overt failure. There is improved lung aeration with residual left greater than right bibasilar opacities, likely reflecting volume loss. No new consolidation. No sizable pleural effusion. No evidence of pneumothorax. Stable left-sided cardiac pacemaker.IMPRESSIONImproved lung aeration with bibasilar volume loss. Cardiomegaly without overt failure.Electronically signed by: Jeff Johnson (Sep 29, 2019 10:09:10)
[2019-09-29] MEDS: CEREBYX INJ 100 MG in NS 50 ML IV 50 ML IV SCH ×2 (11:04→20:23)
[2019-09-29] MEDS: PROCALAMINE 3 % 1,000 ML IV SCH (11:37)
[2019-09-30] MEDS: NS + KCL 20 MEQ/L 1,000 ML IV SCH ×2 (06:05→12:45)
[2019-09-30 06:08] LABS: ALANINE AMINOTRANSFERASE < 6 Units/L (12-78); ALBUMIN 2.3 g/dL (3.4-5.0); ALKALINE PHOSPHATASE 68 Units/L (46-116); ASPARTATE AMINO TRANSFERASE 13 Units/L (15-37); BLOOD UREA NITROGEN 12 mg/dL (7-18); CALCIUM 7.9 mg/dL (8.5-10.1); CARBON DIOXIDE 33.4 mmol/L (21-32); CHLORIDE 100 mmol/L (98-107); COR CA(FOR HYPOALB) 9.3 mg/dL (8.5-10.1); COR NA(FOR HYPERGLY) 137 mmol/L (136-145); MAGNESIUM 2.1 mg/dL (1.7-2.9); SODIUM 136 mmol/L (136-145); TOTAL PROTEIN 5.5 g/dL (6.4-8.2); eGFR NON BLACK RACES > 60 (>60)
[2019-09-30 06:15] LABS: BASOPHILS % (AUTO) 0.7 % (0.2-1.0); EOSINOPHILS # (AUTO) 0.1 x10^3/uL (0.0-0.2); EOSINOPHILS % (AUTO) 1.5 % (0.9-2.9); HEMATOCRIT 29.7 % (36.0-47.0); LYMPHOCYTES # (AUTO) 2.6 X10^3/uL (1.3-2.9); MEAN CORPUSCULAR HEMOGLOBIN 30.9 pg (27.0-34.0); MEAN CORPUSCULAR HGB CONC 33.7 g/dL (33.0-35.0); MEAN CORPUSCULAR VOLUME 91.8 fL (80.0-100.0); MEAN PLATELET VOLUME 8.5 fL (7.4-11.0); MONOCYTES # (AUTO) 0.5 x10^3/uL (0.3-0.8); MONOCYTES % (AUTO) 7.4 % (0.0-13.0); NEUTROPHILS # (AUTO) 3.8 x10^3/uL (2.2-4.8); NEUTROPHILS % (AUTO) 53.4 % (42.0-75.0); PLATELET COUNT 231 X10^3/uL (150.0-450.0); RED BLOOD COUNT 3.24 X10^6/uL (3.5-5.4); RED CELL DISTRIBUTION WIDTH 14.7 % (11.6-16.5); WHITE BLOOD COUNT 7.1 X10^3/uL (3.6-10.0)
--- NOTE | 2019-09-30 08:15 | RAD ---
HISTORYSOB, diabetes, pacemakerSTUDYCHEST, 1 VIEWCOMPARISONChest film September 27, 2019.FINDINGSThe trachea is midline. The cardiac silhouette is unremarkable other than left ventricular enlarged. The lungs are clear without focal infiltrate or effusion there is mild atelectasis right lung base.. The bony thorax is unremarkable. There are mild chronic changes of fibrosis and overall the chest is not significantly changed compared to September 11, 2000 19IMPRESSIONNo acute cardiopulmonary disease. Chronic lung changes of fibrosis and right basilar atelectasis.Pacemaker in place.No significant interval exchange specialist the series of film since the earliest recent film in the series September 11, 2019.Electronically signed by: DANIELLE NIELSEN (Sep 30, 2019 08:13:42)
--- NOTE | 2019-09-30 09:39 | RAD ---
HISTORYShortness of breathSTUDYCHEST, 1 [id number]/2019FINDINGSHeart is within normal limits in size. The jessica are normal. The lungs are free of acute alveolar infiltrates. No pleural effusions are identified. The bony thorax is unremarkable. There is a pacemaker present on the left.IMPRESSIONNo significant abnormalityElectronically signed by: GIA HECK (Sep 30, 2019 09:37:50)
--- NOTE | 2019-09-30 10:10 | PCM.PROG ---
Progress Note - Progress Note for Day of Date of Exam: 09/29/19 - Subjective Subjective: MS. JALLOH IS BEING TREATED FOR NEW ONSET SEIZURE DISORDER AND A UTI. TODAY, SHE IS LYING IN BED WITH EYES CLOSED ON MORNING ROUNDS. SHE IS DIFFICULT TO AROUSE. SHE DOES GRIMICE TO PAINFUL STIMULI. ON EXAMINATION, HEART IS REGULAR IN RATE AND RHYTHM. BILATERAL LUNGS ARE NOTED WITH DIMINISHED LUNG SOUNDS THROUGHOUT. ABDOMEN IS FLAT, SOFT, AND NON-TENDER WITH NORMAL BOWEL SOUNDS NOTED IN ALL QUADRANTS. BAKER CATHETER NOTED TO BEDSIDE DRAINAGE. HER VITALS THIS MORNING ARE: 98.4-77-12-100%-132/60. LABS WERE OBTAINED. ABNORMAL LAB VALUES INCLUDE THE FOLLOWING: WBC RBC 3.33, HGB 10.5, HCT 31.0, POTASSIUM 2.9, CARBON DIOXIDE 33.6, CRATINE 0.45, GLUCOSE 153, CALCIUM 8.1, AST 14, ALT 6, TOTAL PROTEIN 5.9, ALUBMIN 2.6. URINE CULTURE REPORTS GROWTH OF E.COLI. A CHEST XRAY WAS OBTAINED AND REVEALED: Improved lung aeration with bibasilar volume loss. Cardiomegaly without overt failure. SHE IS CURRENTLY RECEIVING IV FLUIDS, LEVAQUIN 500MG IV DAILY, PROCALAMINE IV, AND THE MAGNESIUM AND POTASSIUM PROTOCOL. TODAY, WE WILL CONSULT PHARMACY TO START A MAINTENANCE DOSE OF CEREBYX IV. WE WILL ALSO ADD POTASSIUM TO HER IV FLUIDS. OTHERWISE, WE PLAN TO FOLLOW UP WITH AM LABS AND CONTINUE TO MONITOR. - Past Medical Family Social History Past Med/Fam/Surg Hx: No changes since H&P Allergies: Allergies sitagliptin [From Januvia] Allergy (Verified 08/27/19 12:48) - Review of Systems ROS: No change since H&P - Vital Signs and I&O's Vital Signs: Temperature 97.4 F Pulse Rate 73 Respiratory Rate 15 Blood Pressure [Right Arm] 134/72 Blood Pressure 115/61 O2 Sat by Pulse Oximetry 100 Intake and Output: Intake & Output 09/27/19 09/28/19 09/29/19 09/30/19 11:59 11:59 11:59 11:59 Intake Total 940 / 940 1538 / 1538 2183 / 2183 Output Total 750 / 750 525 / 525 1275 / 1275 Balance 190 / 190 1013 / 1013 908 / 908 - Physical Exam Oriented: Unable to test Eyes: Normal Ear: Normal Nose: Normal Throat: Normal Respiratory: Generalized, Diminished Cardiovascular: Normal : Normal Auscultation: Bowel Sounds: Normal Palpation: Normal Tenderness: Normal Skin: Normal Musculoskeletal: Normal Psychiatric: Normal Mood Description: Calm Affect: Normal Speech Pattern: Aphasic - Laboratory and Diagnostics Result Diagrams: 09/30/19 04:10 09/30/19 04:10 Labs: 09/27/19 14:55 Urine,Catheterized Urine Culture - Final Escherichia Coli Laboratory WBC 7.1 X10^3/uL (3.6-10.0) 09/30/19 04:10 RBC 3.24 X10^6/uL (3.5-5.4) L 09/30/19 04:10 Hgb 10.0 g/dL (12.0-16.0) L 09/30/19 04:10 Hct 29.7 % (36.0-47.0) L 09/30/19 04:10 MCV 91.8 fL (80.0-100.0) 09/30/19 04:10 MCH 30.9 pg (27.0-34.0) 09/30/19 04:10 MCHC 33.7 g/dL (33.0-35.0) 09/30/19 04:10 RDW 14.7 % (11.6-16.5) 09/30/19 04:10 Plt Count 231 X10^3/uL (150.0-450.0) 09/30/19 04:10 MPV 8.5 fL (7.4-11.0) 09/30/19 04:10 Neut % (Auto) 53.4 % (42.0-75.0) 09/30/19 04:10 Lymph % (Auto) 37.0 % (21.0-51.0) 09/30/19 04:10 [place] % (Auto) 7.4 % (0.0-13.0) 09/30/19 04:10 Eos % (Auto) 1.5 % (0.9-2.9) 09/30/19 04:10 Baso % (Auto) 0.7 % (0.2-1.0) 09/30/19 04:10 Neut # (Auto) 3.8 x10^3/uL (2.2-4.8) 09/30/19 04:10 Lymph # (Auto) 2.6 X10^3/uL (1.3-2.9) 09/30/19 04:10 [place] # (Auto) 0.5 x10^3/uL (0.3-0.8) 09/30/19 04:10 Eos # (Auto) 0.1 x10^3/uL (0.0-0.2) 09/30/19 04:10 Baso # (Auto) 0.0 X10^3/uL (0.0-0.1) 09/30/19 04:10 Absolute Nucleated RBC 0.1 /100WBC 09/30/19 04:10 PT 13.3 SECONDS (11.8-14.3) 09/27/19 14:30 INR Target Range - 09/27/19 14:30 INR 1.05 (0.8-1.3) 09/27/19 14:30 APTT 26.5 SECONDS (22.9-36.5) 09/27/19 14:30 PTT Comment - 09/27/19 14:30 Sodium 136 mmol/L (136-145) 09/30/19 04:10 Corrected Sodium 137 mmol/L (136-145) 09/30/19 04:10 Potassium 3.1 mmol/L (3.5-5.1) L 09/30/19 04:10 Chloride 100 mmol/L (98-107) 09/30/19 04:10 Carbon Dioxide 33.4 mmol/L (21-32) H 09/30/19 04:10 BUN 12 mg/dL (7-18) 09/30/19 04:10 Creatinine 0.40 mg/dL (0.55-1.02) L 09/30/19 04:10 Est GFR (MDRD) Af Amer > 60 (>60) 09/30/19 04:10 Est GFR (MDRD) Non-Af > 60 (>60) 09/30/19 04:10 Glucose 149 mg/dL (65-99) H 09/30/19 04:10 POC Glucose (mg/dL) 147 mg/dL (65-99) H 09/30/19 05:47 Calcium 7.9 mg/dL (8.5-10.1) L 09/30/19 04:10 Corrected Calcium 9.3 mg/dL (8.5-10.1) 09/30/19 04:10 Magnesium 2.1 mg/dL (1.7-2.9) 09/30/19 04:10 Total Bilirubin 0.20 mg/dL (0.2-1.0) 09/30/19 04:10 AST 13 Units/L (15-37) L 09/30/19 04:10 ALT < 6 Units/L (12-78) L 09/30/19 04:10 Alkaline Phosphatase 68 Units/L (46-116) 09/30/19 04:10 Creatine Kinase 18 Units/L (26-192) L 09/27/19 14:30 CK-MB (CK-2) < 1.0 ng/mL (0-4.0) 09/27/19 14:30 CK/CKMB % Calc 5.6 % (<4) 09/27/19 14:30 Troponin I 0.03 ng/mL (0-1.5) 09/27/19 14:30 Total Protein 5.5 g/dL (6.4-8.2) L 09/30/19 04:10 Albumin 2.3 g/dL (3.4-5.0) L 09/30/19 04:10 Globulin 3.2 g/dL (2.5-4.5) 09/30/19 04:10 Albumin/Globulin Ratio 0.7 Ratio (1.1-2.1) L 09/30/19 04:10 Prealbumin 15.6 mg/dL (18-35.7) L 09/28/19 04:25 Specimen Type Catherized urine 09/27/19 14:55 Urine Color Yellow (YELLOW) 09/27/19 14:55 Urine Appearance Cloudy (CLEAR) 09/27/19 14:55 Urine pH 6.0 (5.0 - 8.0) 09/27/19 14:55 Ur Specific [place] 1.020 (1.000-1.030) 09/27/19 14:55 Urine Protein 3+ (NEGATIVE) 09/27/19 14:55 Urine Glucose (UA) Negative (NEGATIVE) 09/27/19 14:55 Urine Ketones 2+ (NEGATIVE) 09/27/19 14:55 Urine Occult Blood 1+ (NEGATIVE) 09/27/19 14:55 Urine Nitrite Positive (NEGATIVE) 09/27/19 14:55 Urine Bilirubin Negative (NEGATIVE) 09/27/19 14:55 Urine Urobilinogen Normal (NORMAL) 09/27/19 14:55 Ur Leukocyte Esterase Negative (NEGATIVE) 09/27/19 14:55 Urine RBC 0-2 /HPF (0-3) 09/27/19 14:55 Urine WBC 3-5 /HPF (0-5) 09/27/19 14:55 Ur Squamous Epith Cells Few /HPF (NEGATIVE) 09/27/19 14:55 Urine Bacteria 4+ /HPF (NEGATIVE) 09/27/19 14:55 Ur Culture Indicated? Yes/culture set up 09/27/19 14:55 - Plan (1) New onset seizure Status: Acute Plan: IV FLUIDS, CEREBYX IV, CONTINUE TO MONITOR (2) Urinary tract infection Status: Acute Qualifiers: Urinary tract infection type: acute cystitis Hematuria presence: without hematuria Qualified Code(s): N30.00 - Acute cystitis without hematuria Plan: IV FLUIDS, LEVAQUIN 500MG IV DAILY, CONTINUE TO MONITOR
--- NOTE | 2019-09-30 10:17 | PCM.PROG ---
Progress Note - Progress Note for Day of Date of Exam: 09/30/19 - Subjective Subjective: MS. JALLOH IS BEING TREATED FOR NEW ONSET SEIZURE DISORDER AND A UTI. TODAY, SHE IS LYING IN BED WITH EYES CLOSED ON MORNING ROUNDS. SHE IS DIFFICULT TO AROUSE. SHE DOES GRIMICE TO PAINFUL STIMULI. ON EXAMINATION, HEART IS REGULAR IN RATE AND RHYTHM. BILATERAL LUNGS ARE NOTED WITH DIMINISHED LUNG SOUNDS THROUGHOUT. ABDOMEN IS FLAT, SOFT, AND NON-TENDER WITH NORMAL BOWEL SOUNDS NOTED IN ALL QUADRANTS. BAKER CATHETER NOTED TO BEDSIDE DRAINAGE. HER VITALS THIS MORNING ARE: 97.4-78-18-100%-117/56. LABS WERE OBTAINED. ABNORMAL LAB VALUES INCLUDE THE FOLLOWING: RBC 3.24, HGB 10.0, HCT 29.7, POTASSIUM 3.1, CARBON DIOXIDE 33.4, CREATININE 0.40, GLUCOSE 149, CALCIUM 7.9, AST 13, ALT <6, TOTAL PROTEIN 5.5, ALBUMIN 2.3. URINE CULTURE REPORTS GROWTH OF E.COLI. A CHEST XRAY WAS OBTAINED AND REVEALED: NO SIGNIFICANT ABNORMALITY. SHE IS CURRENTLY RECEIVING IV FLUIDS, LEVAQUIN 500MG IV DAILY, PROCALAMINE IV, CEREBYX, AND THE MAGNESIUM AND POTASSIUM PROTOCOL. TODAY, WE WILL DECREASE THE DOSE OF CEREBYX AND REPEAT A BRAIN CT. OTHERWISE, WE PLAN TO FOLLOW UP WITH AM LABS AND CONTINUE TO MONITOR. - Past Medical Family Social History Past Med/Fam/Surg Hx: No changes since H&P Allergies: Allergies sitagliptin [From Januvia] Allergy (Verified 08/27/19 12:48) - Review of Systems ROS: No change since H&P - Vital Signs and I&O's Vital Signs: Temperature 97.4 F Pulse Rate 73 Respiratory Rate 15 Blood Pressure [Right Arm] 134/72 Blood Pressure 115/61 O2 Sat by Pulse Oximetry 100 Intake and Output: Intake & Output 09/27/19 09/28/19 09/29/19 09/30/19 11:59 11:59 11:59 11:59 Intake Total 940 / 940 1538 / 1538 2183 / 2183 Output Total 750 / 750 525 / 525 1275 / 1275 Balance 190 / 190 1013 / 1013 908 / 908 - Physical Exam Oriented: Unable to test Eyes: Normal Ear: Normal Nose: Normal Throat: Normal Respiratory: Generalized, Diminished Cardiovascular: Normal : Normal Auscultation: Bowel Sounds: Normal Tenderness: Normal Skin: Normal Musculoskeletal: Normal Psychiatric: Normal Mood Description: Calm Affect: Normal Speech Pattern: Aphasic - Laboratory and Diagnostics Result Diagrams: 09/30/19 04:10 09/30/19 04:10 Labs: 09/27/19 14:55 Urine,Catheterized Urine Culture - Final Escherichia Coli Laboratory WBC 7.1 X10^3/uL (3.6-10.0) 09/30/19 04:10 RBC 3.24 X10^6/uL (3.5-5.4) L 09/30/19 04:10 Hgb 10.0 g/dL (12.0-16.0) L 09/30/19 04:10 Hct 29.7 % (36.0-47.0) L 09/30/19 04:10 MCV 91.8 fL (80.0-100.0) 09/30/19 04:10 MCH 30.9 pg (27.0-34.0) 09/30/19 04:10 MCHC 33.7 g/dL (33.0-35.0) 09/30/19 04:10 RDW 14.7 % (11.6-16.5) 09/30/19 04:10 Plt Count 231 X10^3/uL (150.0-450.0) 09/30/19 04:10 MPV 8.5 fL (7.4-11.0) 09/30/19 04:10 Neut % (Auto) 53.4 % (42.0-75.0) 09/30/19 04:10 Lymph % (Auto) 37.0 % (21.0-51.0) 09/30/19 04:10 [place] % (Auto) 7.4 % (0.0-13.0) 09/30/19 04:10 Eos % (Auto) 1.5 % (0.9-2.9) 09/30/19 04:10 Baso % (Auto) 0.7 % (0.2-1.0) 09/30/19 04:10 Neut # (Auto) 3.8 x10^3/uL (2.2-4.8) 09/30/19 04:10 Lymph # (Auto) 2.6 X10^3/uL (1.3-2.9) 09/30/19 04:10 [place] # (Auto) 0.5 x10^3/uL (0.3-0.8) 09/30/19 04:10 Eos # (Auto) 0.1 x10^3/uL (0.0-0.2) 09/30/19 04:10 Baso # (Auto) 0.0 X10^3/uL (0.0-0.1) 09/30/19 04:10 Absolute Nucleated RBC 0.1 /100WBC 09/30/19 04:10 PT 13.3 SECONDS (11.8-14.3) 09/27/19 14:30 INR Target Range - 09/27/19 14:30 INR 1.05 (0.8-1.3) 09/27/19 14:30 APTT 26.5 SECONDS (22.9-36.5) 09/27/19 14:30 PTT Comment - 09/27/19 14:30 Sodium 136 mmol/L (136-145) 09/30/19 04:10 Corrected Sodium 137 mmol/L (136-145) 09/30/19 04:10 Potassium 3.1 mmol/L (3.5-5.1) L 09/30/19 04:10 Chloride 100 mmol/L (98-107) 09/30/19 04:10 Carbon Dioxide 33.4 mmol/L (21-32) H 09/30/19 04:10 BUN 12 mg/dL (7-18) 09/30/19 04:10 Creatinine 0.40 mg/dL (0.55-1.02) L 09/30/19 04:10 Est GFR (MDRD) Af Amer > 60 (>60) 09/30/19 04:10 Est GFR (MDRD) Non-Af > 60 (>60) 09/30/19 04:10 Glucose 149 mg/dL (65-99) H 09/30/19 04:10 POC Glucose (mg/dL) 147 mg/dL (65-99) H 09/30/19 05:47 Calcium 7.9 mg/dL (8.5-10.1) L 09/30/19 04:10 Corrected Calcium 9.3 mg/dL (8.5-10.1) 09/30/19 04:10 Magnesium 2.1 mg/dL (1.7-2.9) 09/30/19 04:10 Total Bilirubin 0.20 mg/dL (0.2-1.0) 09/30/19 04:10 AST 13 Units/L (15-37) L 09/30/19 04:10 ALT < 6 Units/L (12-78) L 09/30/19 04:10 Alkaline Phosphatase 68 Units/L (46-116) 09/30/19 04:10 Creatine Kinase 18 Units/L (26-192) L 09/27/19 14:30 CK-MB (CK-2) < 1.0 ng/mL (0-4.0) 09/27/19 14:30 CK/CKMB % Calc 5.6 % (<4) 09/27/19 14:30 Troponin I 0.03 ng/mL (0-1.5) 09/27/19 14:30 Total Protein 5.5 g/dL (6.4-8.2) L 09/30/19 04:10 Albumin 2.3 g/dL (3.4-5.0) L 09/30/19 04:10 Globulin 3.2 g/dL (2.5-4.5) 09/30/19 04:10 Albumin/Globulin Ratio 0.7 Ratio (1.1-2.1) L 09/30/19 04:10 Prealbumin 15.6 mg/dL (18-35.7) L 09/28/19 04:25 Specimen Type Catherized urine 09/27/19 14:55 Urine Color Yellow (YELLOW) 09/27/19 14:55 Urine Appearance Cloudy (CLEAR) 09/27/19 14:55 Urine pH 6.0 (5.0 - 8.0) 09/27/19 14:55 Ur Specific [place] 1.020 (1.000-1.030) 09/27/19 14:55 Urine Protein 3+ (NEGATIVE) 09/27/19 14:55 Urine Glucose (UA) Negative (NEGATIVE) 09/27/19 14:55 Urine Ketones 2+ (NEGATIVE) 09/27/19 14:55 Urine Occult Blood 1+ (NEGATIVE) 09/27/19 14:55 Urine Nitrite Positive (NEGATIVE) 09/27/19 14:55 Urine Bilirubin Negative (NEGATIVE) 09/27/19 14:55 Urine Urobilinogen Normal (NORMAL) 09/27/19 14:55 Ur Leukocyte Esterase Negative (NEGATIVE) 09/27/19 14:55 Urine RBC 0-2 /HPF (0-3) 09/27/19 14:55 Urine WBC 3-5 /HPF (0-5) 09/27/19 14:55 Ur Squamous Epith Cells Few /HPF (NEGATIVE) 09/27/19 14:55 Urine Bacteria 4+ /HPF (NEGATIVE) 09/27/19 14:55 Ur Culture Indicated? Yes/culture set up 09/27/19 14:55 - Plan (1) New onset seizure Status: Acute Plan: IV FLUIDS, CEREBYX IV, REPEAT BRAIN CT, CONTINUE TO MONITOR (2) Urinary tract infection Status: Acute Qualifiers: Urinary tract infection type: acute cystitis Hematuria presence: without hematuria Qualified Code(s): N30.00 - Acute cystitis without hematuria Plan: IV FLUIDS, LEVAQUIN 500MG IV DAILY, CONTINUE TO MONITOR
[2019-09-30] MEDS: CEREBYX INJ 100 MG in NS 50 ML IV 50 ML IV SCH (10:19)
[2019-09-30] MEDS ORDERED: XYLOCAINE 1 % (PLAIN) ONE (10:25)
[2019-09-30] MEDS: CEREBYX IV SCH ×2 (13:22→20:42)
[2019-09-30] MEDS: NS IV SCH ×2 (13:22→20:42)
[2019-09-30] MEDS: LEVAQUIN PREMIX IV 500 MG 500 MG/100 ML BAG IV SCH (13:48)
[2019-10-01] MEDS: NS + KCL 20 MEQ/L 1,000 ML IV SCH (00:53)
[2019-10-01 06:01] LABS: BASOPHILS % (AUTO) 0.4 % (0.2-1.0); EOSINOPHILS # (AUTO) 0.1 x10^3/uL (0.0-0.2); EOSINOPHILS % (AUTO) 1.6 % (0.9-2.9); HEMOGLOBIN 10.2 g/dL (12.0-16.0); LYMPHOCYTES # (AUTO) 2.9 X10^3/uL (1.3-2.9); LYMPHOCYTES % (AUTO) 37.7 % (21.0-51.0); MEAN CORPUSCULAR HEMOGLOBIN 31.2 pg (27.0-34.0); MEAN CORPUSCULAR VOLUME 91.9 fL (80.0-100.0); MEAN PLATELET VOLUME 8.8 fL (7.4-11.0); MONOCYTES # (AUTO) 0.5 x10^3/uL (0.3-0.8); MONOCYTES % (AUTO) 6.1 % (0.0-13.0); NEUTROPHILS # (AUTO) 4.1 x10^3/uL (2.2-4.8); NEUTROPHILS % (AUTO) 54.2 % (42.0-75.0); PLATELET COUNT 256 X10^3/uL (150.0-450.0); RED BLOOD COUNT 3.26 X10^6/uL (3.5-5.4); RED CELL DISTRIBUTION WIDTH 14.8 % (11.6-16.5); WHITE BLOOD COUNT 7.6 X10^3/uL (3.6-10.0)
[2019-10-01 06:30] LABS: ALANINE AMINOTRANSFERASE 7 Units/L (12-78); ALBUMIN 2.3 g/dL (3.4-5.0); ALKALINE PHOSPHATASE 74 Units/L (46-116); ASPARTATE AMINO TRANSFERASE 11 Units/L (15-37); BLOOD UREA NITROGEN 13 mg/dL (7-18); CALCIUM 7.9 mg/dL (8.5-10.1); CARBON DIOXIDE 33.4 mmol/L (21-32); CHLORIDE 101 mmol/L (98-107); COR CA(FOR HYPOALB) 9.3 mg/dL (8.5-10.1); COR NA(FOR HYPERGLY) 139 mmol/L (136-145); CREATININE 0.48 mg/dL (0.55-1.02); SODIUM 137 mmol/L (136-145); TOTAL PROTEIN 5.5 g/dL (6.4-8.2); eGFR NON BLACK RACES > 60 (>60)
--- NOTE | 2019-10-01 08:15 | CT ---
HISTORYNew onset seizureSTUDYBRAIN W/O CONTechnique: Axial noncontrast images with coronal and sagittal reformats. Dose reduction procedures were used with mA/kv adjusted for body size.[id number]/20/2019FINDINGSThe ventricles, cortical sulci, and other CSF spaces are enlarged consistent with generalized atrophy likely age-related. There is decreased attenuation in the periventricular white matter suggestive of relatively severe small vessel vascular disease. There is no definite evidence for visible recent or remote CVA, hemorrhage, mass lesion, or extra-axial fluid collection. The calvarium is intact. The visualized sinuses are clear.IMPRESSIONNo acute intracranial abnormalityGeneralized atrophy likely age-relatedRelatively severe small-vessel vascular disease, stableElectronically signed by: GIA HECK (Oct 01, 2019 08:13:32)
[2019-10-01] MEDS ORDERED: LOVENOX INJ 40 MG SYR SC SCH (09:00)
[2019-10-01] MEDS: LEVAQUIN PREMIX IV 500 MG 500 MG/100 ML BAG IV SCH (09:25)
[2019-10-01] MEDS: NS IV SCH (09:27)
[2019-10-01] MEDS: CEREBYX IV SCH (09:27)
--- NOTE | 2019-10-01 10:29 | RAD ---
HISTORYShortness of breathSTUDYPortable AP chestCOMPARISONYesterdayFINDINGSThere is elevation of the right hemidiaphragm unchanged. The heart size is normal with attack pacemaker wire leads via the left subclavian vein. There is no edema or effusion or congestion demonstrated.IMPRESSIONNo acute cardiopulmonary disease demonstratedElectronically signed by: PATRIC LOWERY (Oct 01, 2019 10:28:14)
[2019-10-01 13:27] VITALS: BP 129/59
== END 2019-10-01 12:45 | disposition home or self-care (01) | DRG 101 ==
LOC: ICU 14:12 → ER 14:12 → ICU 17:40
PROVIDERS: ADMIT Internal Medicine; ATTEND Internal Medicine
DX: N30.00 Acute cystitis without hematuria; B96.20 Unspecified Escherichia coli [E. coli] as the cause of diseases classified elsewhere; R06.02 Shortness of breath; G40.909 Epilepsy, unspecified, not intractable, without status epilepticus; I51.7 Cardiomegaly; Z95.0 Presence of cardiac pacemaker; I50.9 Heart failure, unspecified; R13.10 Dysphagia, unspecified; R26.2 Difficulty in walking, not elsewhere classified
CPT/HCPCS: 36415; 51702; 70450; 71010; 71045; 80053; 80185; 81001; 82550; 82553; 83735; 84134; 84484; 85025; 85610; 85730; 87086; 87088; 87186; 92526; 92610; 93005; 96365; 96367; 96374; 99285; A4216; A4222; B5200; Q2009; S0078; G0378; J1650; J1956; J3475; J3480; J7030; J7050